=== PATIENT | female | born 1985 | race Two or more races ===

== ENCOUNTER 2022-02-25 08:06 | Outpatient (CLI) | payer OTHER | END 2022-02-25 15:35 | disposition home or self-care (01) | LOC: LAB 08:06 | PROVIDERS: ATTEND Obstetrics & Gynecology Gynecology | DX: D06.7 Carcinoma in situ of other parts of cervix (principal) ==

== ENCOUNTER 2022-06-21 12:00 | Inpatient (IN) | payer OTHER ==
[~2022-06-21] VITALS: Ht 160 cm; Wt 61.2 kg
[~2022-06-21 12:00] MED LIST: CIPRO500 MG PO; IBU600 MG PO
== END 2022-06-25 13:10 | disposition home or self-care (01) | DRG 743 ==
LOC: O/R 06-24 05:34 → SURH 06-24 07:00 → OB/GYN 06-24 13:41
PROVIDERS: ADMIT Obstetrics & Gynecology Gynecologic Oncology; ATTEND Obstetrics & Gynecology Gynecologic Oncology
PROC: 0UT74ZZ Resection of Bilateral Fallopian Tubes, Percutaneous Endoscopic Approach (ICD-10-PCS; 2022-06-24)
PROC: 07BC4ZZ Excision of Pelvis Lymphatic, Percutaneous Endoscopic Approach (ICD-10-PCS; 2022-06-24)
PROC: 0UT94ZZ Resection of Uterus, Percutaneous Endoscopic Approach (ICD-10-PCS; principal; 2022-06-24 07:00)
DX: D25.1 Intramural leiomyoma of uterus (principal); Z20.822 Contact with and (suspected) exposure to COVID-19